=== PATIENT | female | born 2000 | race African-American/Black ===

== ENCOUNTER 2019-11-23 19:39 | Emergency (ER) | payer MEDICAID ==
[2019-11-23] MEDS ORDERED: ACETAMINOPHEN 325 MG TABLET PO ONE (19:45)
--- NOTE | 2019-11-23 20:36 | ER Document Report ---
ED Respiratory Problem - General Chief Complaint: Cough Stated Complaint: BREATHING DIFFICULTY Time Seen by Provider: 11/23/19 19:56 Mode of Arrival: Ambulatory Information source: Patient Notes: 19-year-old female presents to the emergency department with a history of cough, fever, headache, and feeling poorly for the past 5 days. She called the [facility] coronavirus line and was directed according to the patient, to come to the emergency department. She notes that she has had some shortness of breath which began earlier tonight. Patient presents to the emergency room because she is concerned about possible COVID-19 infection. - Related Data Allergies/Adverse Reactions: latex Allergy (Verified 11/23/19 19:43) Past Medical History - Social History Smoking Status: Former Smoker Frequency of alcohol use: 5 shots/day Drug Abuse: Marijuana Family History: Reviewed & Not Pertinent Patient has suicidal ideation: No Patient has homicidal ideation: No Review of Systems - Review of Systems Notes: Constitutional: + fever. HENT+ sore throat. Eyes: Negative for visual changes. Cardiovascular: Negative for chest pain. Respiratory: +cough,+ shortness of breath Gastrointestinal: + Nausea Genitourinary: Negative for dysuria. Musculoskeletal: Negative for back pain. Skin: Negative for rash. Neurological: Negative for headaches, weakness or numbness. 10 point ROS negative except as marked above and in HPI. Physical Exam - Vital signs Vitals: Temp Pulse Resp BP Pulse Ox 100 F 116 H 20 105/52 L 100 11/23/19 19:44 11/23/19 19:44 11/23/19 19:44 11/23/19 19:44 11/23/19 19:44 - Notes Notes: PHYSICAL EXAMINATION: Physical Exam: General: Well-nourished well-developed 19-year-old female in no acute distress HEENT: NC/AT, pupils equal round and reactive to light, MM moist,nares clear, oropharynx clear, airway patent Neck: supple, no adenopathy, no masses. Good range of motion Lungs: clear, no wheezing, no rales no rhonchi CVS: Regular rate and rhythm no murmur gallop or rub Abdomen: Soft, active, nontender, no masses, no hepatosplenomegaly Ext: No edema, clubbing or cyanosis. Neuro: Alert and responsive, moving all 4 extremities on command, cranial nerves intact, no focal findings Skin: Intact no open lesions, no rash PSYCH: Normal mood, normal affect. Course - Re-evaluation Re-evalutation: 11/23/19 21:26 Patient presents with low-grade temperature, cough and body aches. Evaluation for influenza and strep are negative, urinalysis was also noted to be negative. Given her presentation, coronavirus screening test is being performed. I have instructed the patient that she will need to self isolate/self quarantine until she received a report of the test results. The patient acknowledges that she has been tested for COVID-19, and will self isolate at home until she receives results. She is instructed to avoid anti-inflammatory medications. May use Tylenol for fever, aches and pains. She is also instructed to return to the hospital if her symptoms are worsening or development of shortness of breath. - Vital Signs Vital signs: Temp Pulse Resp BP Pulse Ox 99 F 98 21 H 125/68 97 11/23/19 21:51 11/23/19 21:51 11/23/19 21:51 11/23/19 21:51 11/23/19 21:51 - Laboratory Result Diagrams: 11/23/19 20:40 11/23/19 20:40 Laboratory results interpreted by me: 11/23/19 11/23/19 11/23/19 20:40 20:40 20:56 WBC 11.4 H Hgb 10.9 L Hct 34.4 L MCV 68 L MCH 21.6 L MCHC 31.7 L RDW 17.3 H Sodium 134.9 L AST 41 H ALT 39 H Urine Urobilinogen 4.0 H Urine Ascorbic Acid 40 H - Diagnostic Test Radiology reviewed: Image reviewed, Reports reviewed - Chest x-ray: No acute infiltrates or effusions. Discharge - Discharge Clinical Impression: Suspected 2019 novel coronavirus infection Condition: Good Disposition: HOME, SELF-CARE Additional Instructions: You were seen with fever and upper respiratory symptoms.Testing for influenza and strep were negative, chest x-ray is clear. Given the pandemic and coronavirus concerns, your were made a person of interest and a swab was collected and will be sent for COVID-19 evaluation. You will need to self quarantine until you get the results. Avoid anti-inflammatory medications, you may use Tylenol for fever, aches and pains. Please return to the hospital if her symptoms are worsening or development of shortness of breath. HOME CARE INSTRUCTIONS & INFORMATION: Thank you for choosing us for your medical needs. We hope you're satisfied with the care you received. After you leave, you must properly care for your problem and, at the same time, observe its progress. Any condition can change. Some illnesses can change rapidly over hours or days. If your condition worsens, return to the Emergency Department or see your physician promptly. ABOUT YOUR X-RAYS AND EKG'S: If you had an EKG or X-rays taken, they have been read by the Emergency Physician. The X-rays and EKG's will also be read by a Radiologist or Smoke Eater within 24 hours. If discrepancies are noted, you will be notified by telephone. Please be certain the ED has a correct telephone number & address where you can be reached. Also, realize that some fractures or abnormalities do not show up on initial X-rays. If your symptoms continue, see your physician. ABOUT YOUR LABORATORY TEST: If you had laboratory tests, the results have been reviewed by the Emergency Physician. Some test results (for example cultures) may not be available for several days. You will be contacted if any test result shows you need additional treatment. Please be certain the ED has a correct telephone number and address where you can be reached. ABOUT YOUR MEDICATIONS: You will receive instructions on how to take your medicine on the prescription label you receive. Additional information may be provided by the Pharmacy. If you have questions afterwards, call the ED for clarification or further instructions. Some prescribed medications may cause drowsiness. Do not perform tasks such as driving a car or operating machinery without consulting your Pharmacist. If you feel you need a refill of pain medication, your condition will need re-evaluation. Please do not call for a refill of any medication. ABOUT YOUR SIGNATURE: Signature of this document acknowledges to followin. Understanding that you received emergency treatment and that you may be released before al medical problems are known or treated. Please be certain the ED has a correct phone number & address where you can be reached. 2. Acknowledgement that you will arrange for follow-up care as recommended. 3. Authorization for the Emergency Physician to provide information to your follow-up Physician in order to maximize your care. AT ANY TIME, IF YOUR SYMPTOMS CHANGE SIGNIFICANTLY OR WORSEN OR YOU DEVELOP NEW SYMPTOMS, RETURN TO THE EMERGENCY DEPARTMENT IMMEDIATELY FOR RE-EVALUATION. OUR GOAL IS TO PROVIDE EXCELLENT MEDICAL CARE! WE HOPE THAT WE HAVE MET YOUR EXPECTATIONS DURING YOUR EMERGENCY DEPARTMENT VISIT AND THAT YOU FEEL YOU HAVE RECEIVED EXCELLENT CARE!
[2019-11-23 20:48] LABS: ABSOLUTE LYMPHOCYTES (AUTO) 3.4 10^3/uL (0.5-4.7); ABSOLUTE MONOCYTES (AUTO) 1.1 10^3/uL (0.1-1.4); ABSOLUTE NEUT (AUTO) 6.8 10^3/uL (1.7-8.2); BASOPHILS % (AUTO) 0.3 % (0-2); EOSINOPHILS % (AUTO) 0.1 % (0-6); HEMATOCRIT 34.4 % (36.0-47.0); HEMOGLOBIN 10.9 g/dL (12.0-15.5); LYMPHOCYTES % (AUTO) 30.2 % (13-45); MEAN CORPUSCULAR HEMOGLOBIN 21.6 pg (27.0-33.4); MEAN CORPUSCULAR HGB CONC 31.7 g/dL (32.0-36.0); MEAN CORPUSCULAR VOLUME 68 fl (80-97); MONOCYTES % (AUTO) 9.6 % (3-13); PLATELET COUNT 156 10^3/uL (150-450); RED BLOOD COUNT 5.05 10^6/uL (3.72-5.28); RED CELL DISTRIBUTION WIDTH 17.3 % (11.5-14.0); SEGMENTED NEUTROPHILS % (AUTO) 59.8 % (42-78); TOTAL CELLS COUNTED % (AUTO) 100 %; WHITE BLOOD COUNT 11.4 10^3/uL (4.0-10.5)
[2019-11-23 21:06] LABS: A TYPE INFLUENZA AG NEGATIVE (NEGATIVE); B INFLUENZA AG NEGATIVE (NEGATIVE)
[2019-11-23 21:08] LABS: ALKALINE PHOSPHATASE 59 U/L (38-126); ANION GAP 8 (5-19); ASPARTATE AMINO TRANSFERASE 41 U/L (14-36); BILIRUBIN,DIRECT 0.1 mg/dL (0.0-0.4); BILIRUBIN,TOTAL 0.7 mg/dL (0.2-1.3); BLOOD UREA NITROGEN 13 mg/dL (7-20); CALCIUM 9.3 mg/dL (8.4-10.2); CARBON DIOXIDE 24 mmol/L (22-30); CHLORIDE 103 mmol/L (98-107); GLUCOSE 103 mg/dL (75-110); POTASSIUM 3.9 mmol/L (3.6-5.0); TOTAL PROTEIN 7.4 g/dL (6.3-8.2)
[2019-11-23 21:18] LABS: APPEARANCE,URINE CLEAR; BILIRUBIN,URINE NEGATIVE (NEGATIVE); COLOR,URINE YELLOW; GLUCOSE, URINE NEGATIVE (NEGATIVE); KETONES,URINE NEGATIVE (NEGATIVE); PROTEIN,URINE NEGATIVE (NEGATIVE); URINE SPECIFIC GRAVITY 1.023
[2019-11-23 21:52] VITALS: BP 125/68
--- NOTE | 2019-11-23 22:12 | RADIOLOGY REPORT (SQ) ---
CLINICAL INDICATION: Cough. TECHNIQUE: A single portable AP view was obtained of the chest at 2114 hours. COMPARISON: None. FINDINGS: The cardiomediastinal silhouette is normal. The lungs are grossly clear. No evidence of effusion or pneumothorax. The visualized bones are unremarkable. IMPRESSION: No evidence of active intrathoracic disease.
== END 2019-11-23 22:25 | disposition home or self-care (01) ==
LOC: ER 19:39
DX: Z20.828 Contact with and (suspected) exposure to other viral communicable diseases (principal); R05 Cough; R50.9 Fever, unspecified; R51 Headache; R11.0 Nausea; R06.02 Shortness of breath; F12.10 Cannabis abuse, uncomplicated; Z91.040 Latex allergy status; Z87.891 Personal history of nicotine dependence
CPT/HCPCS: 36415; 71045; 80053; 81001; 85025; 87070; 87077; 87635; 87804; 87880; 99283

== ENCOUNTER → 2019-11-24 | Outpatient (CLI) | payer SELFPAY | LOC: RDC 12:54 | PROVIDERS: ATTEND Nurse Practitioner Family | DX: Z53.9 Procedure and treatment not carried out, unspecified reason (principal) ==

== ENCOUNTER 2019-11-25 08:47 | Emergency (ER) | payer MEDICAID ==
[2019-11-25] MEDS ORDERED: NORMAL SALINE 1000 ML 1,000 ML IV ONE (08:58)
[2019-11-25] MEDS ORDERED: ONDANSETRON HCL INJ/PF 4 MG/2 ML SDV IV ONE (08:58)
--- NOTE | 2019-11-25 09:03 | ER Document Report ---
ED GI/ - General Chief Complaint: Abdominal Pain Stated Complaint: LOW ABDOMINAL PAIN Time Seen by Provider: 11/25/19 08:52 Primary Care Provider: [facility] [Provider Group] - Follow up as needed [facility] [Provider Group] - Follow up as needed Notes: Patient is a 19-year-old female who presents emergency department with a chief complaint of epigastric pain. Patient states that she has had her symptoms since she was seen here 2 days ago. Patient is PUI for COVID 19. States that she feels her epigastric pain is most likely hunger pains. Patient also has a sore throat. A throat culture was sent other day when she was seen here in the emergency department and she has group G Streptococcus noted. Patient states that she also had unprotected sex and is having some vaginal discharge. She also admits to oral sex. - Related Data Allergies/Adverse Reactions: latex Allergy (Verified 11/25/19 08:49) Past Medical History - General Information source: Patient - Social History Smoking Status: Unknown if Ever Smoked Family History: Reviewed & Not Pertinent Review of Systems - Review of Systems Notes: REVIEW OF SYSTEMS: CONSTITUTIONAL : Denies recent illness. Denies recent unintentional weight loss. Denies fever, chills, or sweats. EENT: See HPI. CARDIOVASCULAR: Denies chest pain. RESPIRATORY: Denies shortness of breath, cough, congestion, difficulty breathing, or wheezing. GASTROINTESTINAL: See HPI. GENITOURINARY: Denies difficulty urinating, burning, blood in urine, urgency or frequency. FEMALE GENITOURINARY: See HPI. MUSCULOSKELETAL: Denies neck and back pain. Denies joint pain or swelling. SKIN: Denies rash, itchiness, or lesions HEMATOLOGIC : Denies easy bruising or bleeding. LYMPHATIC: Denies swollen, painful, enlarged glands. NEUROLOGICAL: Denies no numbness or tingling denies weakness. Denies headache. Denies altered mental status. Denies alteration in speech. PSYCHIATRIC: Denies stress, anxiety, alteration in sleep patterns, or depression. All other systems reviewed and negative. Physical Exam - Vital signs Vitals: Temp Pulse Resp BP Pulse Ox 99.6 F 125 H 22 H 121/66 98 11/25/19 08:50 11/25/19 08:50 11/25/19 08:50 11/25/19 08:50 11/25/19 08:50 - Notes Notes: PHYSICAL EXAMINATION: GENERAL: Appears well, healthy, well-nourished, no acute distress. HEAD: Normocephalic, atraumatic. EYES: PERRL, conjunctiva normal, all extraocular movements intact, sclera nonicteric ENT: Moist mucous membranes. NECK: Supple, no noticeable swelling, redness, rash. Normal range of motion. LUNGS: Equal breath sounds bilaterally and clear to auscultation. No wheezes rales or rhonchi. CARDIOVASCULAR: S1-S2, regular rate, regular rhythm. Radial pulses 2+, normal. ABDOMEN: Normoactive bowel sounds. Soft, nontender, no guarding, no rebound tenderness, and no masses palpated. EXTREMITIES: Normal strength and range of motion, no pitting or edema. No cyanosis. NEUROLOGICAL: Moves all extremities upon command. Strength 5/5 in all extremities. PSYCH: Normal mood, normal affect. SKIN: Warm, dry. No rash, lesions, ulcerations noted. Normal skin turgor. SEAFOOD AND SERVICE MEAT MANAGER: No cervical motion tenderness noted. No adenexal tenderness noted. Small amount of white/clear discharge noted. Course - Re-evaluation Re-evalutation: 11/25/19 11:08 Pelvic exam done with KRISTOPHER Logan at bedside. No cervical motion tenderness, no adnexal tenderness noted. 11/25/19 11:34 Hematology shows a leukocytosis of 15,400. Patient's hemoglobin hematocrit are slightly low, but the patient already has anemia. Chemistries are unremarkable. hCG is negative. Urinalysis shows trace ketones. She received IV fluids here in the emergency department. Patient states that she feels better after receiving Zofran. Wet mount shows 3+ epithelial cells and 4+ bacteria. No yeast or trichomonas was noted. Patient will be treated for bacterial vaginosis. Gonorrhea and Chlamydia are both negative. Patient received Rocephin here in the emergency department for her positive group G Streptococcus from her throat culture the other day. I have very low suspicion for appendicitis, PID, or any life-threatening etiology at this time. Follow-up precautions were given. Verbal discharge instructions were given to the patient. They verbalized understanding. They are stable for discharge. - Vital Signs Vital signs: Temp Pulse Resp BP Pulse Ox 98.3 F 98 22 H 131/79 H 98 11/25/19 11:38 11/25/19 11:38 11/25/19 08:50 11/25/19 11:38 11/25/19 11:38 - Laboratory Result Diagrams: 11/25/19 09:36 11/25/19 09:36 Laboratory results interpreted by me: 11/25/19 11/25/19 11/25/19 09:08 09:36 09:36 WBC 15.4 H Hgb 10.6 L Hct 33.6 L MCV 68 L MCH 21.5 L MCHC 31.4 L RDW 17.7 H Absolute Neuts (auto) 10.1 H Absolute Monos (auto) 1.6 H Sodium 135.6 L Glucose 112 H Urine Ketones TRACE H Urine Urobilinogen 4.0 H Urine Ascorbic Acid 40 H Discharge - Discharge Clinical Impression: Bacterial vaginosis, Strep pharyngitis Condition: Stable Disposition: HOME, SELF-CARE Additional Instructions: You have an overgrowth of natural vaginal bacteria, called bacterial vaginosis. You are being treated with an antibiotic called metronidazole. Do not drink alcohol while taking this medication. Complete all of the antibiotic even if your symptoms have resolved. Return for abdominal pain, vomiting, fever of greater than 101F, or any other symptoms that are worrisome to you. You can take the nausea medication if needed. You were given antibiotics and a steroid for your strep throat. Download the [employer] savana to help you afford your medications. Do not have unprotected sex. Prescriptions: Metronidazole [Flagyl 500 mg Tablet] 500 mg PO Q6H #28 tablet Ondansetron [Zofran Odt 4 mg Tablet] 1 - 2 tab PO Q4H PRN #30 tab.rapdis PRN Reason: For Nausea/Vomiting Referrals: [facility] [Provider Group] - Follow up as needed [facility] [Provider Group] - Follow up as needed
[2019-11-25 09:35] LABS: APPEARANCE,URINE CLEAR; BILIRUBIN,URINE NEGATIVE (NEGATIVE); COLOR,URINE YELLOW; GLUCOSE, URINE NEGATIVE (NEGATIVE); KETONES,URINE TRACE mg/dL (NEGATIVE); LEUKOCYTE ESTERASE,URINE NEGATIVE (NEGATIVE); NITRITE,URINE NEGATIVE (NEGATIVE); PROTEIN,URINE NEGATIVE (NEGATIVE); URINE SPECIFIC GRAVITY 1.028
[2019-11-25 10:00] LABS: ABSOLUTE BASOPHILS # (AUTO) 0.1 10^3/uL (0.0-0.2); ABSOLUTE LYMPHOCYTES (AUTO) 3.6 10^3/uL (0.5-4.7); ABSOLUTE MONOCYTES (AUTO) 1.6 10^3/uL (0.1-1.4); ABSOLUTE NEUT (AUTO) 10.1 10^3/uL (1.7-8.2); BASOPHILS % (AUTO) 0.4 % (0-2); EOSINOPHILS % (AUTO) 0.2 % (0-6); HEMATOCRIT 33.6 % (36.0-47.0); HEMOGLOBIN 10.6 g/dL (12.0-15.5); LYMPHOCYTES % (AUTO) 23.3 % (13-45); MEAN CORPUSCULAR HEMOGLOBIN 21.5 pg (27.0-33.4); MEAN CORPUSCULAR HGB CONC 31.4 g/dL (32.0-36.0); MEAN CORPUSCULAR VOLUME 68 fl (80-97); MONOCYTES % (AUTO) 10.2 % (3-13); PLATELET COUNT 177 10^3/uL (150-450); RED BLOOD COUNT 4.91 10^6/uL (3.72-5.28); RED CELL DISTRIBUTION WIDTH 17.7 % (11.5-14.0); SEGMENTED NEUTROPHILS % (AUTO) 65.9 % (42-78); TOTAL CELLS COUNTED % (AUTO) 100 %; WHITE BLOOD COUNT 15.4 10^3/uL (4.0-10.5)
[2019-11-25 10:09] LABS: BACTERIA (WET MOUNT) 4+ BACTERIA SEEN; EPITHELIALS (WET MOUNT) 3+ EPITHELIALS SEEN; T.VAGINALIS (WET MOUNT) NO TRICHOMONAS SEEN; WBCS (WET MOUNT) 1+ WBCS SEEN; YEAST (WET MOUNT) NO YEAST SEEN
[2019-11-25] MEDS ORDERED: DEXAMETHASONE SOD PHOS INJ 10 MG/1 ML VIAL IM ONE (10:10)
[2019-11-25] MEDS ORDERED: CEFTRIAXONE INJ 1000 MG VIAL IV ONE (10:10)
[2019-11-25 10:24] LABS: ALKALINE PHOSPHATASE 64 U/L (38-126); ANION GAP 8 (5-19); ASPARTATE AMINO TRANSFERASE 34 U/L (14-36); BILIRUBIN,TOTAL 0.9 mg/dL (0.2-1.3); BLOOD UREA NITROGEN 10 mg/dL (7-20); CARBON DIOXIDE 22 mmol/L (22-30); CHLORIDE 106 mmol/L (98-107); GLUCOSE 112 mg/dL (75-110); TOTAL PROTEIN 7.6 g/dL (6.3-8.2)
[2019-11-25 11:29] LABS: CHLAM PCR NOT DETECTED (NOT DETECT)
[2019-11-25 11:42] VITALS: BP 131/79
== END 2019-11-25 11:44 | disposition home or self-care (01) ==
LOC: ER 08:47
DX: N76.0 Acute vaginitis (principal); B96.89 Other specified bacterial agents as the cause of diseases classified elsewhere; J02.0 Streptococcal pharyngitis; R10.30 Lower abdominal pain, unspecified; R10.13 Epigastric pain; J02.9 Acute pharyngitis, unspecified
CPT/HCPCS: 99283; 96372; 96361; 96374; 96375; 36415; 87210; 83690; 84703; 85025; 80053; 81001; 87491; 87591; J0696; J2405; J7030; J1100

== ENCOUNTER 2020-03-02 15:46 | Emergency (ER) | payer MEDICAID, OTHER ==
[2020-03-02 16:01] VITALS: BP 145/64
--- NOTE | 2020-03-02 16:16 | ER Document Report ---
ED Medical Screen (RME) - General Chief Complaint: Vaginal Itching Stated Complaint: STD CHECK Time Seen by Provider: 03/02/20 16:08 Mode of Arrival: Ambulatory Information source: Patient Notes: HPI; 19-year-old female presents to the emergency room with persistent vaginal discharge and sores for 5 months. Patient states she [facility] about a [facility] ago had negative herpes 1, negative herpes 2, negative GC, negative chlamydia. Negative yeast. Had a negative Pap. Was diagnosed with bacterial vaginosis. Patient states she has persistent itching with thick white discharge and persistent lesions that she cannot get rid of. Has not seen a blow pit operator or primary care physician. Denies any current sexual activity. PE: Alert and oriented x3. Lungs: Clear to auscultation without rales, rhonchi, wheezes. Heart: Regular rate rhythm without murmurs, rubs, gallops. Unable to do full exam in triage I have greeted and performed a rapid initial assessment of this patient. A comprehensive ED assessment and evaluation of the patient, analysis of test results and completion of the medical decision making process will be conducted by additional ED providers. I have specifically instructed the patient or family members with the patient to immediately return to any nursing staff should anything change in the patient's condition or with their chief complaint. - Related Data Allergies/Adverse Reactions: latex Allergy (Verified 03/02/20 16:08) Past Medical History - Social History Chew tobacco use (# tins/day): No Frequency of alcohol use: None Drug Abuse: None Physical Exam - Vital signs Vitals: Temp Pulse Resp BP Pulse Ox 99.3 F 86 20 145/64 H 100 03/02/20 16:03/02/20 16:00 03/02/20 16:00 03/02/20 16:00 03/02/20 16:00 Course - Vital Signs Vital signs: Temp Pulse Resp BP Pulse Ox 99.3 F 86 20 145/64 H 100 03/02/20 16:00 03/02/20 16:00 03/02/20 16:00 03/02/20 16:00 03/02/20 16:00
[2020-03-02 17:30] LABS: APPEARANCE,URINE CLEAR; BILIRUBIN,URINE NEGATIVE (NEGATIVE); COLOR,URINE YELLOW; GLUCOSE, URINE NEGATIVE (NEGATIVE); KETONES,URINE TRACE mg/dL (NEGATIVE); LEUKOCYTE ESTERASE,URINE NEGATIVE (NEGATIVE); NITRITE,URINE NEGATIVE (NEGATIVE); PROTEIN,URINE NEGATIVE (NEGATIVE); URINE SPECIFIC GRAVITY 1.028
--- NOTE | 2020-03-02 19:04 | ER Document Report ---
Doctor's Note Notes: 03/02/20 19:03 Was notified by nursing staff that patient would like to leave AGAINST MEDICAL ADVICE. Patient was counseled on the risks of leaving AGAINST MEDICAL ADVICE The patient has chosen to leave the facility against medical advice. The relevant issues have been reviewed and discussed with the patient and family at the bedside. At the time of this assessment there is no indication for involuntary commitment. The patient is alert, oriented, and able to express clearly their reasoning for not wanting to remain in the emergency department for further treatment. The patient is not clinically psychotic, intoxicated, and denies and suicidal ideation. Differential or suspected diagnoses based on medical screening exam: Vaginal issues of unknown etiology The patient is aware of the concerning diagnoses and acknowledges understanding of the reasons for the following recommendations: Loss of life, permanent di sability, chronic pain, worsening of condition, cardiac dysfunction, respiratory dysfunction, reproductive dysfunction, urinary dysfunction loss of current lifestyle The following recommendations/services were offered and refused: Further evaluation and treatment. The following risks were explained: , permanent disability, loss of function, chronic pain, reproductive dysfunction, new dysfunction loss of current lifestyle. Clinical impression: Patient is competent to make decisions regarding the medical that is being offered. 03/02/20 19:10
== END 2020-03-02 23:38 | disposition left against medical advice (07) ==
LOC: ER 15:46
DX: L29.9 Pruritus, unspecified (principal); N89.8 Other specified noninflammatory disorders of vagina; Z91.041 Radiographic dye allergy status; Z53.20 Procedure and treatment not carried out because of patient's decision for unspecified reasons
CPT/HCPCS: 81001; 81025; 99283